=== PATIENT | female | born 1970 | race Caucasian/White ===

== ENCOUNTER 2020-12-30 20:40 | Emergency (ER) | payer SELFPAY ==
--- NOTE | 2020-12-30 21:20 | EDPHYS ---
Physician Documentation [facility] Name: Radha Titus Age: 50 yrs Sex: Female : 1970 Arrival Date: 12/30/2020 Time: 20:41 Bed 13 Private MD: ED Physician Christopher Suazo HPI: 12/30 22:09 This 50 yrs old Female presents to ER via Ambulatory with complaints of jr8 NEEDLE POSS BROKEN OFF IN ARM. 22:09 Patient stated that she relapsed and think she broke a portion of hypodermic needle in jr8 her right AC region. Denies pain at this time. Wanted it evaluated before going back into rehab. Severity of symptoms: At their worst the symptoms were mild in the emergency department the symptoms are unchanged. The patient has not experienced similar symptoms in the past. The patient has not recently seen a physician. 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 - Social history:: Smoking status: unknown Patient uses IV drugs, cocaine. ROS: 22:09 Eyes: Negative for injury, pain, redness, and discharge, ENT: Negative for injury, jr8 pain, and discharge, Neck: Negative for injury, pain, and swelling, Cardiovascular: Negative for chest pain, palpitations, and edema, Respiratory: Negative for shortness of breath, cough, wheezing, and pleuritic chest pain, Abdomen/GI: Negative for abdominal pain, nausea, vomiting, diarrhea, and constipation, Back: Negative for injury and pain, MS/Extremity: Negative for injury and deformity, Skin: Negative for injury, rash, and discoloration, Neuro: Negative for headache, weakness, numbness, tingling, and seizure. Exam: 22:09 Constitutional: This is a well developed, well nourished patient who is awake, alert, jr8 and in no acute distress. Cardiovascular: Regular rate and rhythm with a normal S1 and S2. No gallops, murmurs, or rubs. Normal PMI, no JVD. No pulse deficits. Respiratory: Lungs have equal breath sounds bilaterally, clear to auscultation and percussion. No rales, rhonchi or wheezes noted. No increased work of breathing, no retractions or nasal flaring. Skin: Warm, dry with normal turgor. Normal color with no rashes, no lesions, and no evidence of cellulitis. Track loyola noted to both arms MS/ Extremity: Pulses equal, no cyanosis. Neurovascular intact. Full, normal range of motion. Neuro: Awake and alert, GCS 15, oriented to person, place, time, and situation. Cranial nerves II-XII grossly intact. Motor strength 5/5 in all extremities. Sensory grossly intact. Cerebellar exam normal. Normal gait. Vital Signs: 20:54 BP 137 / 87; Pulse 92; Resp 18 S; Temp 97.9(O); Pulse Ox 99% on R/A; Weight 48.99 kg bb (R); Height 5 ft. 4 in. (162.56 cm) (R); Pain 0/10; 20:54 Body Mass Index 18.54 (48.99 kg, 162.56 cm) bb MDM: 20:45 Patient medically screened. jr8 22:09 Data reviewed: vital signs, nurses notes, radiologic studies, plain films, and as a jr8 result, I will discharge patient. Data interpreted: Pulse oximetry: on room air is 99 %. Interpretation: normal. Counseling: I had a detailed discussion with the patient and/or guardian regarding: the historical points, exam findings, and any diagnostic results supporting the discharge/admit diagnosis, radiology results, the need for outpatient follow up, a family practitioner, to return to the emergency department if symptoms worsen or persist or if there are any questions or concerns that arise at home. ED course: Discussed with patient that there is a foreign body present but cannot be readily palpated and near a large vein. Because there is no current infection or imminent threat of it causing harm or pain, would recommend leaving it alone. If it were to become infected to come back for further evaluation. patient good with this plan . 12/30 20:52 Order name: XRAY Elbow RIGHT 3 view jr8 Administered Medications: No medications were administered Disposition: 22:36 Co-signature as Attending Physician, Christopher Suazo MD. rn Disposition Summary: 12/30/20 21:19 Discharge Ordered Location: Home jr8 Problem: new jr8 Symptoms: have improved jr8 Condition: Stable jr8 Diagnosis - Puncture wound with foreign body of unspecified upper arm, initial encounter jr8 Followup: jr8 - With: Private Physician - When: As needed - Reason: Recheck today's complaints, Continuance of care, Re-evaluation by your physician Discharge Instructions: - Discharge Summary Sheet jr8 - Puncture Wound jr8 Forms: - Medication Reconciliation Form jr8 - Thank You Letter jr8 - Antibiotic Education jr8 - Prescription Opioid Use jr8 Signatures: Dispatcher [employer] Wanda Marrero, AJAY RN Christopher Elise MD MD rn Roszak, Josh, PA PA jr8
--- NOTE | 2020-12-30 21:20 | ER ---
Nurse's Notes [facility] Name: Radha Titus Age: 50 yrs Sex: Female : 1970 Arrival Date: 12/30/2020 Time: 20:41 Bed 13 Private MD: Diagnosis: Puncture wound with foreign body of unspecified upper arm, initial encounter Presentation: 12/30 20:54 Chief complaint: Patient states: she thinks she broke off a needle in her right AC bb yesterday when shooting up drugs denies pain at this time. Coronavirus screen: At this time, the client does not indicate any symptoms associated with coronavirus-19. Ebola Screen: No symptoms or risks identified at this time. Initial Sepsis Screen: Does the patient meet any 2 criteria? No. Patient's initial sepsis screen is negative. Does the patient have a suspected source of infection? No. Patient's initial sepsis screen is negative. Risk Assessment: Do you want to hurt yourself or someone else? Patient reports no desire to harm self or others. Onset of symptoms was December 29, 2020. 20:54 Method Of Arrival: Ambulatory bb 20:54 Acuity: [place] 4 bb Triage Assessment: 20:56 General: Appears in no apparent distress. slender, Behavior is cooperative, anxious. bb Pain: Denies pain. Neuro: Level of Consciousness is awake, alert, obeys commands, Oriented to person, place, time, situation. Cardiovascular: Capillary refill < 3 seconds Patient's skin is warm and dry. Respiratory: Respiratory effort is even, unlabored, Respiratory pattern is regular. GI: No signs and/or symptoms were reported involving the gastrointestinal system. Derm: Skin is pink, warm \T\ dry. Musculoskeletal: Circulation, motion, and sensation intact. 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 - Social history:: Smoking status: unknown Patient uses IV drugs, cocaine. Screenin:58 Abuse screen: Denies threats or abuse. Nutritional screening: No deficits noted. bb Tuberculosis screening: No symptoms or risk factors identified. Fall Risk None identified. Assessment: 20:58 Reassessment: No changes from previously documented assessment. see triage assessment. bb Vital Signs: 20:54 BP 137 / 87; Pulse 92; Resp 18 S; Temp 97.9(O); Pulse Ox 99% on R/A; Weight 48.99 kg bb (R); Height 5 ft. 4 in. (162.56 cm) (R); Pain 0/10; 20:54 Body Mass Index 18.54 (48.99 kg, 162.56 cm) ED Course: 20:41 Patient arrived in ED. cf2 20:42 Wale Merida PA is PHCP. jr8 20:42 Christopher Suazo MD is Attending Physician. jr8 20:56 Triage completed. bb 20:56 Arm band placed on Patient placed in an exam room, on a stretcher, on pulse oximetry. bb 20:58 Patient has correct armband on for positive identification. Bed in low position. Call bb light in reach. Side rails up X 1. 21:19 XRAY Elbow RIGHT 3 view Sent. bs2 21:23 No provider procedures requiring assistance completed. Patient did not have IV access bs2 during this emergency room visit. 21:26 XRAY Elbow RIGHT 3 view In Process Unspecified. EDMS Administered Medications: No medications were administered Outcome: 21:19 Discharge ordered by . jr8 21:23 Discharged to home ambulatory. bs2 21:23 Condition: stable 21:23 Discharge instructions given to patient, Instructed on discharge instructions, follow up and referral plans. Demonstrated understanding of instructions, follow-up care. 21:23 Patient left the ED. bs2 Signatures: Dispatcher [employer] EDMS Wanda Reveles RN RN bb Wale Merida PA PA jr8 Ravinder Givens cf2 Pamela Bae bs2
--- NOTE | 2020-12-30 21:47 | RAD REPORT ---
EXAM DESCRIPTION: RAD - Elbow Right 3 View - 12/30/2020 9:26 pm CLINICAL HISTORY: Elbow pain FINDINGS: A 5.5 millimeter linear radiopaque foreign body is present within the anterior soft tissue of the medial elbow. No fracture or dislocation
[2020-12-30 23:05] VITALS: BP 137/87; TEMP 97.9; O2SAT 99
== END 2020-12-30 21:23 | disposition home or self-care (01) ==
LOC: ER 20:40
DX: S51.041A Puncture wound with foreign body of right elbow, initial encounter (principal); Z88.0 Allergy status to penicillin
CPT/HCPCS: 99283